=== PATIENT | male | born 1990 | race Caucasian/White ===

== ENCOUNTER 2017-11-05 12:03 | Emergency (ER) | payer OTHER ==
--- NOTE | 2017-11-05 14:09 | ER ---
Nurse's Notes [facility] Name: David Flores Age: 27 yrs Sex: Male : 1990 Arrival Date: 11/05/2017 Time: 12:09 Bed 12 Private MD: Out, [facility] Diagnosis: Otitis externa;Otitis media, unspecified, right ear Presentation: 11/05 12:27 Presenting complaint: Patient states: right ear pain x 2 days. Reports "bump" behind sv his right ear. Transition of care: patient was not received from another setting of care. Onset of symptoms was November 03, 2017. Care prior to arrival: None. 12:27 Method Of Arrival: Ambulatory sv 12:27 Acuity: ISABEL 5 sv 13:30 Risk Assessment: Do you want to hurt yourself or someone else? Patient reports no ss desire to harm self or others. Initial Sepsis Screen: Does the patient meet any 2 criteria? No. Patient's initial sepsis screen is negative. Does the patient have a suspected source of infection? No. Patient's initial sepsis screen is negative. Historical: - Allergies: 18:51 No Known Allergies; ss - Home Meds: 18:51 None [Active]; ss - PMHx: 12:28 None; sv - PSHx: 12:28 None; sv - Immunization history:: Adult Immunizations up to date. - Social history:: Smoking status: Patient/guardian denies using tobacco. - Ebola Screening: : No symptoms or risks identified at this time. - Family history:: not pertinent. Screenin:51 Abuse screen: Denies threats or abuse. Denies injuries from another. Nutritional ss screening: No deficits noted. Tuberculosis screening: Never had TB. Fall Risk None identified. Assessment: 13:40 General: Appears in no apparent distress. comfortable, Behavior is calm, cooperative. ss Pain: Complains of pain in right ear Pain currently is 6 out of 10 on a pain scale. Pain began 2-3 days ago. Is continuous. Neuro: Level of Consciousness is awake, alert, obeys commands. Respiratory: Airway is patent Respiratory effort is even, unlabored, Respiratory pattern is regular, symmetrical. GI: No signs and/or symptoms were reported involving the gastrointestinal system. EENT: Nares are clear Throat is clear. EENT: Reports pain in right ear. Musculoskeletal: Range of motion: intact in all extremities, Swelling absent. Vital Signs: 12:29 BP 130 / 79; Pulse 81; Resp 18; Temp 99.2; Pulse Ox 99% ; Weight 83.46 kg; Height 6 ft. sv 5 in. (195.58 cm); Pain 6/10; 12:29 Body Mass Index 21.82 (83.46 kg, 195.58 cm) sv ED Course: 12:09 Patient arrived in ED. sb2 12:10 Out, of [facility] is Private Physician. sb2 12:28 Triage completed. sv 12:29 Arm band placed on left wrist. Patient placed in waiting room, Patient notified of wait sv time. 13:35 Jl Arguello MD is Attending Physician. [facility] 14:08 Kelly Andrade MD is Referral Physician. [facility] 14:16 Jeanna Heller, NADIA is Primary Nurse. ss 14:38 No provider procedures requiring assistance completed. Patient did not have IV access ss during this emergency room visit. 18:51 Patient has correct armband on for positive identification. Bed in low position. Call ss light in reach. Administered Medications: 14:28 Drug: Rocephin (cefTRIAXone) 1 grams Route: IM; Site: right gluteus; ss 14:48 Follow up: Response: No adverse reaction ss 14:28 Drug: Augmentin 875 mg Route: PO; ss 14:48 Follow up: Response: No adverse reaction ss 14:28 Drug: Motrin 800 mg Route: PO; ss 14:48 Follow up: Response: No adverse reaction ss 14:31 Not Given (not available in pharmacy. Dr. Arguello notified no new orders or ss interventions. Patient okay to fill prescription at pharmacy): CIPRODEX 4 drops Otic in right ear once Outcome: 14:08 Discharge ordered by . caridad 14:38 Discharged to home ambulatory. ss 14:38 Condition: good 14:38 Discharge instructions given to patient, Instructed on discharge instructions, follow up and referral plans. medication usage, Demonstrated understanding of instructions, follow-up care, medications. 14:48 Patient left the ED. ss Signatures: Kelly Storey RN RN sv Anderson, Corey, MD MD cha Smirch, Shelby, RN RN Kassi See sb2
--- NOTE | 2017-11-05 14:09 | EDPHYS ---
Physician Documentation [facility] Name: David Flores Age: 27 yrs Sex: Male : 1990 Arrival Date: 11/05/2017 Time: 12:09 Bed 12 Private MD: Out, [facility] ED Physician Jl Arguello HPI: 11/05 14:05 This 27 yrs old Male presents to ER via Ambulatory with complaints of Ear caridad Pain. 14:05 The patient presents with pain, swelling, tenderness. The complaints affect the right caridad ear. Onset: The symptoms/episode began/occurred 3 day(s) ago. Modifying factors: The symptoms are alleviated by nothing, the symptoms are aggravated by nothing. Associated signs and symptoms: The patient has no apparent associated signs or symptoms. Severity of symptoms: At their worst the symptoms were moderate in the emergency department the symptoms are unchanged. The patient has not experienced similar symptoms in the past. Historical: - Allergies: 18:51 No Known Allergies; ss - Home Meds: 18:51 None [Active]; ss - PMHx: 12:28 None; sv - PSHx: 12:28 None; sv - Immunization history:: Adult Immunizations up to date. - Social history:: Smoking status: Patient/guardian denies using tobacco. - Ebola Screening: : No symptoms or risks identified at this time. - Family history:: not pertinent. ROS: 14:05 Constitutional: Negative for fever, chills, and weight loss, Eyes: Negative for injury, caridad pain, redness, and discharge, Neck: Negative for injury, pain, and swelling, Cardiovascular: Negative for chest pain, palpitations, and edema, Respiratory: Negative for shortness of breath, cough, wheezing, and pleuritic chest pain, Abdomen/GI: Negative for abdominal pain, nausea, vomiting, diarrhea, and constipation, Back: Negative for injury and pain, : Negative for injury, bleeding, discharge, and swelling, MS/Extremity: Negative for injury and deformity, Skin: Negative for injury, rash, and discoloration, Neuro: Negative for headache, weakness, numbness, tingling, and seizure, Psych: Negative for depression, anxiety, suicide ideation, homicidal ideation, and hallucinations, Allergy/Immunology: Negative for hives, rash, and allergies, Endocrine: Negative for neck swelling, polydipsia, polyuria, polyphagia, and marked weight changes, Hematologic/Lymphatic: Negative for swollen nodes, abnormal bleeding, and unusual bruising. 14:05 ENT: Positive for ear pain. Exam: 14:05 Constitutional: This is a well developed, well nourished patient who is awake, alert, caridad and in no acute distress. Head/Face: Normocephalic, atraumatic. Eyes: Pupils equal round and reactive to light, extra-ocular motions intact. Lids and lashes normal. Conjunctiva and sclera are non-icteric and not injected. Cornea within normal limits. Periorbital areas with no swelling, redness, or edema. Neck: Trachea midline, no thyromegaly or masses palpated, and no cervical lymphadenopathy. Supple, full range of motion without nuchal rigidity, or vertebral point tenderness. No Meningismus. Chest/axilla: Normal chest wall appearance and motion. Nontender with no deformity. No lesions are appreciated. Cardiovascular: Regular rate and rhythm with a normal S1 and S2. No gallops, murmurs, or rubs. Normal PMI, no JVD. No pulse deficits. Respiratory: Lungs have equal breath sounds bilaterally, clear to auscultation and percussion. No rales, rhonchi or wheezes noted. No increased work of breathing, no retractions or nasal flaring. Abdomen/GI: Soft, non-tender, with normal bowel sounds. No distension or tympany. No guarding or rebound. No evidence of tenderness throughout. Back: No spinal tenderness. No costovertebral tenderness. Full range of motion. Male : Normal genitalia with no discharge or lesions. Skin: Warm, dry with normal turgor. Normal color with no rashes, no lesions, and no evidence of cellulitis. MS/ Extremity: Pulses equal, no cyanosis. Neurovascular intact. Full, normal range of motion. Neuro: Awake and alert, GCS 15, oriented to person, place, time, and situation. Cranial nerves II-XII grossly intact. Motor strength 5/5 in all extremities. Sensory grossly intact. Cerebellar exam normal. Normal gait. Psych: Awake, alert, with orientation to person, place and time. Behavior, mood, and affect are within normal limits. 14:05 ENT: Ear canal(s): erythema, that is moderate, of the right canal, TM's: decreased mobility, dullness, erythema, that is moderate, Mouth: is normal, Posterior pharynx: is normal. Vital Signs: 12:29 BP 130 / 79; Pulse 81; Resp 18; Temp 99.2; Pulse Ox 99% ; Weight 83.46 kg; Height 6 ft. sv 5 in. (195.58 cm); Pain 6/10; 12:29 Body Mass Index 21.82 (83.46 kg, 195.58 cm) sv MDM: 13:35 Patient medically screened. caridad Administered Medications: 14:28 Drug: Rocephin (cefTRIAXone) 1 grams Route: IM; Site: right gluteus; ss 14:48 Follow up: Response: No adverse reaction ss 14:28 Drug: Augmentin 875 mg Route: PO; ss 14:48 Follow up: Response: No adverse reaction ss 14:28 Drug: Motrin 800 mg Route: PO; ss 14:48 Follow up: Response: No adverse reaction 14:31 Not Given (not available in pharmacy. Dr. Arguello notified no new orders or ss interventions. Patient okay to fill prescription at pharmacy): CIPRODEX 4 drops Otic in right ear once Disposition: 11/05/17 14:08 Discharged to Home. Impression: Otitis externa, Otitis media, unspecified, right ear. - Condition is Stable. - Discharge Instructions: Ear Drops, Adult, Otitis Media, Adult, Otitis Externa, Otitis Externa, [id number]. - Prescriptions for Augmentin 875- 125 mg Oral Tablet - take 1 tablet by ORAL route every 12 hours for 10 days; 20 tablet. Tylenol- Codeine #3 300-30 mg Oral Tablet - take 2 tablet by ORAL route every 6 hours As needed; 30 tablet. Ciprodex 0.3- 0.1 % Otic Drops, Suspension - instill 4 drop by OTIC route every 12 hours for 7 days , for ears ONLY; 1 Container. - Medication Reconciliation Form, Thank You Letter, Antibiotic Education, Prescription Opioid Use form. - Follow up: Private Physician; When: 2 - 3 days; Reason: Recheck today's complaints, Continuance of care, Re-evaluation by your physician. Follow up: Kelly Andrade MD; When: 2 - 3 days; Reason: Recheck today's complaints, Re-evaluation by your physician. - Problem is new. - Symptoms have improved. Signatures: Kelly Storey, RN RN Jl Maxwell MD MD cha Smirch, Shelby, RN RN ss Corrections: (The following items were deleted from the chart) 14:48 14:08 11/05/2017 14:08 Discharged to Home. Impression: Otitis externa; Otitis media, ss unspecified, right ear. Condition is Stable. Forms are Medication Reconciliation Form, Thank You Letter, Antibiotic Education, Prescription Opioid Use. Follow up: Private Physician; When: 2 - 3 days; Reason: Recheck today's complaints, Continuance of care, Re-evaluation by your physician. Follow up: Kelly Andrade; When: 2 - 3 days; Reason: Recheck today's complaints, Re-evaluation by your physician. Problem is new. Symptoms have improved. caridad
[2017-11-05] MEDS ORDERED: IBUPROFEN 400 MG TAB ONE (14:20)
[2017-11-05] MEDS ORDERED: CEFTRIAXONE 1000 MG/VIAL ONE (14:20)
[2017-11-05] MEDS ORDERED: LIDOCAINE 1% MPF 5 ML VIAL ONE (14:20)
[2017-11-05] MEDS ORDERED: AMOX/K CLAV 875 MG TAB ONE (14:21)
== END 2017-11-05 14:48 | disposition home or self-care (01) ==
LOC: ER 12:03
DX: H66.91 Otitis media, unspecified, right ear (principal); H60.91 Unspecified otitis externa, right ear
CPT/HCPCS: 96372; 99283